=== PATIENT | female | born 1935 | race Caucasian/White ===

== ENCOUNTER 2017-05-02 08:41 | Emergency (ER) | payer MEDICARE, OTHER ==
[~2017-05-02] VITALS: Ht 157.5 cm; Wt 58.3 kg
[~2017-05-02 08:41] MED LIST: ASPI-845 PO; ATOR10TA PO; CHOL100046 PO; LOSA50TA3 PO; OMEP20CA10 PO; SOTA120T22 PO
[2017-05-02] MEDS ORDERED: ondansetron/PF 4mg/2ml inj IV ONE ×2 (09:10→12:40)
[2017-05-02] MEDS ORDERED: normal saline 1000ML IV soln IVB ONE (09:10)
[2017-05-02] MEDS ORDERED: morphine 5 MG/ML injection IV ONE (09:10)
[2017-05-02 09:17] LABS: BASOPHILS % (AUTO) 0.1 % (0-1); EOSINOPHILS # (AUTO) 0.1 X10'3 (0-0.9); EOSINOPHILS % (AUTO) 1.5 % (0-6); HEMATOCRIT 48.4 % (35.0-45.0); HEMOGLOBIN 16.1 g/dl (12.0-16.0); LYMPHOCYTES # (AUTO) 0.7 X10'3 (1.1-4.8); LYMPHOCYTES % (AUTO) 7.9 % (21-51); MEAN CORPUSCULAR HEMOGLOBIN 31.1 PG (27.0-31.0); MEAN CORPUSCULAR HGB CONC 33.2 % (33.0-36.5); MEAN CORPUSCULAR VOLUME 93.6 FL (78-98); MEAN PLATELET VOLUME 7.6 FL (7.4-10.4); MONOCYTES # (AUTO) 0.3 X10'3 (0-0.9); MONOCYTES % (AUTO) 3.1 % (2-12); NEUTROPHILS # (AUTO) 8.1 X10'3 (1.8-7.7); NEUTROPHILS % (AUTO) 87.4 % (42-75); PLATELET COUNT 330 X10'3 (140-440); RED BLOOD COUNT 5.17 X10'6 (4.20-5.60); RED CELL DISTRIBUTION WIDTH 13.1 % (11.5-14.5); WHITE BLOOD COUNT 9.2 X10'3 (4.5-11.0)
[2017-05-02 09:28] LABS: INR 0.9 INR; PROTHROMBIN TIME 9.8 SECONDS (9.0-12.0)
[2017-05-02 09:33] LABS: ALANINE AMINOTRANSFERASE 30 U/L (12-78); ALBUMIN 4.8 G/DL (3.4-5.0); ALBUMIN/GLOBULIN RATIO 1.2 (1.1-1.5); ALKALINE PHOSPHATASE 89 IU/L (46-116); ANION GAP 14 (8-16); ASPARTATE AMINO TRANSFERASE 25 U/L (10-37); BILIRUBIN,TOTAL 0.9 MG/DL (0.1-1.0); BLOOD UREA NITROGEN 25 MG/DL (7-18); BUN/CREATININE RATIO 21.4 (6.6-38.0); CALCIUM 10.3 MG/DL (8.5-10.1); CHLORIDE 98 MMOL/L (99-107); CREATININE 1.17 MG/DL (0.40-0.90); GLUCOSE 115 MG/DL (70-104); LIPASE 199 U/L (73-393); POTASSIUM 4.2 MMOL/L (3.5-5.1); SODIUM 136 MMOL/L (135-145); TOTAL CARBON DIOXIDE 24.2 MMOL/L (24-32); TOTAL PROTEIN 8.7 G/DL (6.4-8.2); eGFR 44 ML/MIN
[2017-05-02 11:31] LABS: CLARITY,URINE SLIGHTLY CLOUDY (Clear); COLOR,URINE YELLOW (Yellow); GLUCOSE, URINE NEGATIVE (Neg); KETONES,URINE 15 mg/dl (Neg); LEUKOCYTE ESTERASE ,URINE NEGATIVE (Neg); NITRITES, URINE NEGATIVE (Neg); OCCULT BLOOD,URINE SMALL (Neg); PH,URINE 5.5 (4.8-8.0); PROTEIN,URINE 30 mg/dl (Neg); UA COLLECTION TYPE CLN CATCH MIDSTREAM; UROBILINOGEN,URINE 0.2 E.U/dL (0.2-1.0)
[2017-05-02 11:41] LABS: HYALINE CASTS >30 /LPF (NEGATIVE)
[2017-05-02 11:42] LABS: SQUAMOUS EPITHELIAL CELL,UR MODERATE /LPF (FEW)
[2017-05-02 11:43] LABS: BACTERIA,URINE FEW /HPF (Neg); RBC,URINE 0-2 /HPF (0-2)
[2017-05-02] MEDS ORDERED: ONDA8TAB9 PO (12:38)
[2017-05-02 13:15] VITALS: BP 146/67
== END 2017-05-02 13:16 | disposition home or self-care (01) ==
LOC: ER 08:43
DX: K52.9 Noninfective gastroenteritis and colitis, unspecified (principal); E78.00 Pure hypercholesterolemia, unspecified; I10 Essential (primary) hypertension; K21.9 Gastro-esophageal reflux disease without esophagitis; Z90.710 Acquired absence of both cervix and uterus; Z90.49 Acquired absence of other specified parts of digestive tract; Z88.5 Allergy status to narcotic agent; Z88.6 Allergy status to analgesic agent
CPT/HCPCS: 36415; 74176; 80053; 81001; 83690; 85025; 85610; 87088; 96361; 96374; 96375; 96376; 99285; A4353; J2270; J2405; J7030

== ENCOUNTER 2023-10-06 08:06 | Emergency (ER) | payer MEDICARE, OTHER ==
[~2023-10-06] VITALS: Ht 157.5 cm; Wt 48.5 kg
[~2023-10-06 08:06] MED LIST changes: +LOSA-416 PO; -LOSA50TA3 PO; -OMEP20CA10 PO; +OMEP20CA15 PO; +ONDA8TAB9 PO
[2023-10-06 08:12] VITALS: BP 182/74; PULSE 76; RESP 18; O2SAT 98
[2023-10-06 09:45] VITALS: TEMP 97.8
== END 2023-10-06 09:47 | disposition home or self-care (01) ==
LOC: ER 08:07
DX: S29.9XXA Unspecified injury of thorax, initial encounter (principal); G43.909 Migraine, unspecified, not intractable, without status migrainosus; E78.00 Pure hypercholesterolemia, unspecified; K21.9 Gastro-esophageal reflux disease without esophagitis; Z90.49 Acquired absence of other specified parts of digestive tract; Z90.710 Acquired absence of both cervix and uterus; Z88.8 Allergy status to other drugs, medicaments and biological substances; Z91.018 Allergy to other foods; W01.0XXA Fall on same level from slipping, tripping and stumbling without subsequent striking against object, initial encounter; Y93.89 Activity, other specified; Y92.009 Unspecified place in unspecified non-institutional (private) residence as the place of occurrence of the external cause; Y99.8 Other external cause status; Z79.899 Other long term (current) drug therapy
CPT/HCPCS: 71046; 99284

== ENCOUNTER 2025-02-14 10:51 | Emergency (ER) | payer MEDICARE ==
[~2025-02-14] VITALS: Ht 157.5 cm; Wt 43.9 kg
[2025-02-14 11:08] VITALS: TEMP 99.3
--- NOTE | 2025-02-14 12:43 | Physician Documentation ---
History of Present Illness ~ Chief Complaint: See Chief Complaint Stated Complaint: SHINGLES Time Seen by MD: 12:26 Primary Medical Doctor: behzad ROSENTHAL 89-YEAR-OLD FEMALE PRESENTS TO THE ED REPORTING A BURNING RASH FOR THE LAST TWO WEEKS. SHE STATES SHE HAS BEEN ON AN AROUND OF ANTIVIRALS WITH ONLY MODERATE IMPROVEMENT. SAYS THE RASH HE IS ON THE LEFT SIDE Medication Reconciliation Allergies: Coded Allergies: codeine (Verified Allergy, Unknown, 02/14/25) aspirin (Verified Adverse Reaction, Unknown, UPSET STOMACH, 02/14/25) Uncoded Allergies: Tea (Tannin Acids) (Allergy, Severe, Diaphoresis, "odd feeling", 10/09/10) Chocolate (Adverse Reaction, Intermediate, headaches, 10/09/10) Scheduled Atorvastatin Calcium (Lipitor), 1 TABLET PO HS, (Reported) Cholecalciferol (Vitamin D), 1 CAP PO DAILY, (Reported) Hydrocortisone Acetate (Hydrocortisone), 1 APPLIC TOP Q12H Losartan* (Cozaar*), 1 TABLET PO DAILY, (Reported) Ondansetron (Zofran Odt), 1 TAB PO Q8H Sotalol HCl (Betapace), 1 TAB PO BID, (Reported) Valacyclovir HCl (Valacyclovir), 1 TAB PO Q8H Scheduled PRN Aspirin (Aspirin EC), 1 TABLET PO DAILY PRN for headache, (Reported) Omeprazole (Omeprazole), 1 CAP PO DAILY PRN for indigestion/dyspepsia, (Reported) Past Medical History Past Medical History: Migraine, Arrhythmia, High Cholesterol, Hypertension, Diverticulitis, Diverticulosis, GERD, Peptic Ulcer Disease Past Surgical History: cholecystectomy, hysterectomy, orthopedic surgeries, other Patient History: FH: ovarian cancer MOTHER, , Age: 82, Cause: Stroke Alcohol Use: None Drug Use: none Lives with: Spouse Lives In: Home Occupation: retired Review of Systems All Other Systems at this time: Reviewed and Negative ROS As stated above in the HPI, otherwise all systems are reviewed and negative. Physical Exam Vital Signs: Temperature: 99.3, Source: Temporal, Heart Rate: 88, Respiratory Rate: 18, BP: 171/88, Pulse Oximetry: 97, Weight: 43.900 Oxygen Flow Rate: 0 Physical Exam General: Alert, no apparent distress. Psychiatric: Normal mood and affect. Skin: MILD RASH ALONG THE LEFT SIDE OF THE NECK, warm and dry. No edema, no ecchymosis. Progress Results/Orders Results/Orders Vital Signs 02/14/25 02/14/25 02/14/25 11:08 13:23 13:25 Temp 99.3 Pulse 88 82 87 Resp 18 16 16 B/P (MAP) 171/88 159/85 (109) 159/85 Pulse Ox 97 97 98 O2 Flow Rate 0 Medical Decision Making Additional information obtaine: N/A Findings I WILL START HER ON AN ADDITIONAL ROUND OF ANTIVIRALS FOR SUSPECTED SHINGLES. CORTICOSTEROIDS NOT IDEAL CHOICE FOR THIS PATIENT BASED ON THE LENGTH OF SYMPTOMS AND BEING 89 YEARS OLD Differential Dx:Considerations: Include: Abscess, AIDS/HIV, Anthrax (cutaneous), Atopic dermatitis, Candidiasis, Contact dermatitis, Drug reaction, Erythema multiforme, Erysipelas, Gangrene, Herpes zoster, Herpes simplex, Hidradenitis suppurativa, Impetigo, Intertrigo, Lymes disease, Molluscum contagiosum, Osteomyelitis, Pediculosis, Pityriasis rosea, Psoriaisis, RMSF, Rosacea, Scabies, Scarlet fever, Tinea, Urticaria, Varicella, Viral exanthema, Other Departure Disposition: HOME / SELF CARE / HOMELESS Impression: Primary Impression: Shingles Discharge Instructions: Toth Splints, [id number] Referrals: NO PRIMARY CARE PROVIDER (PCP) Prescriptions Hydrocortisone Acetate (Hydrocortisone) 1 % Oint...g. 1 APPLIC TOP Q12H for 7 Days, #28 GM 0 Refills Prov: VINCENT GALO NP 02/14/25 Valacyclovir HCl (Valacyclovir) 1,000 Mg Tablet 1 TAB PO Q8H for 7 Days, #21 TAB 0 Refills Prov: VINCENT GALO NP 02/14/25 Education Educated: Patient Educated regarding: diagnosis Signature Scribe Signature: F Attestation: Scribed for Vincent Galo Np by Vincent Dugan NP . 02/14/25 12:45 VINCENT GALO NP Feb 14, 2025 12:43
[2025-02-14] MEDS ORDERED: VALA100031 PO (12:45)
[2025-02-14] MEDS ORDERED: HYDR28OI2 TOP (12:51)
[2025-02-14 13:25] VITALS: BP 159/85; PULSE 87; RESP 16; O2SAT 98
== END 2025-02-14 13:26 | disposition home or self-care (01) ==
LOC: ER 10:52
DX: B02.9 Zoster without complications (principal); E78.00 Pure hypercholesterolemia, unspecified; I10 Essential (primary) hypertension; K21.9 Gastro-esophageal reflux disease without esophagitis; Z88.5 Allergy status to narcotic agent; Z88.6 Allergy status to analgesic agent; Z88.8 Allergy status to other drugs, medicaments and biological substances; Z90.49 Acquired absence of other specified parts of digestive tract; Z90.710 Acquired absence of both cervix and uterus
CPT/HCPCS: 99283